=== PATIENT | female | born 1940 | race Hispanic/Latino ===

== ENCOUNTER 2018-02-21 10:07 | Emergency (ER) | payer MEDICARE ==
[2018-02-21 10:25] VITALS: TEMP 98.9
[2018-02-21] MEDS ORDERED: TDAP Vaccine 0.5 mL Syr IM ONE (10:36)
[2018-02-21] MEDS ORDERED: Absorbable Gelatin Sponge Size 100 MM ONE (10:41)
--- NOTE | 2018-02-21 10:41 | ED PDOC ---
Arrival/HPI - General Historian: Patient <Ag Vela - Last Filed: 02/21/18 10:55> <Marcos Flores - Last Filed: 02/21/18 11:02> - General Chief Complaint: Upper Extremity Problem/Injury Time Seen by Provider: 02/21/18 10:24 - History of Present Illness Narrative History of Present Illness (Text): 02/21/18 10:37 77 y/o female, pmh including hypothyroidism, last tetanus over 10 years ago, c/ o Lt. hand 5th digit skin laceration x 1 hour. Pt. stated that she sliced her hand accidentally, no numbness or tingling, able to flex and extend, no night sweat, no rash, no dizziness, no change in vision, no other medical or psychological complaints. (Ag Vela) Past Medical History - Provider Review Nursing Documentation Reviewed: Yes - Infectious Disease Hx of Infectious Diseases: None - Endocrine/Metabolic Hx Hypothyroidism: Yes - Psychiatric Hx Substance Use: No - Surgical History Hx Appendectomy: Yes - Anesthesia Hx Anesthesia: Yes Hx Anesthesia Reactions: No Hx Malignant Hyperthermia: No <Ag Vela - Last Filed: 02/21/18 10:55> Family/Social History - Physician Review Nursing Documentation Reviewed: Yes Family/Social History: Unknown Family HX Smoking Status: Never Smoked Hx Alcohol Use: No Hx Substance Use: No <Ag Vela - Last Filed: 02/21/18 10:55> Allergies/Home Meds <Ag Vela - Last Filed: 02/21/18 10:55> <Marcos Flores - Last Filed: 02/21/18 11:02> Allergies/Adverse Reactions: Allergies No Known Allergies Allergy (Verified 02/21/18 10:25) Home Medications: Home Meds Medication Instructions Recorded Confirmed Levothyroxine [Synthroid] 1 tab PO DAILY 02/21/18 02/21/18 Review of Systems - Review of Systems Constitutional: absent: Fatigue, Fevers Eyes: absent: Vision Changes ENT: absent: Hearing Changes Respiratory: absent: SOB, Cough Cardiovascular: absent: Chest Pain Gastrointestinal: absent: Abdominal Pain, Nausea, Vomiting Skin: Other (laceration). absent: Rash, Pruritis, Abscess, Ulcer, Cellulitis Neurological: absent: Headache, Dizziness Psychiatric: absent: Anxiety, Depression <Ag Vela - Last Filed: 02/21/18 10:55> Physical Exam Vital Signs Reviewed: Yes Temperature: Afebrile Blood Pressure: Normal Pulse: Regular Respiratory Rate: Normal Appearance: Positive for: Well-Appearing, Non-Toxic, Comfortable Pain Distress: Mild Mental Status: Positive for: Alert and Oriented X 3 - Systems Exam Head: Present: Atraumatic, Normocephalic Pupils: Present: PERRL Extroacular Muscles: Present: EOMI Conjunctiva: Present: Normal Mouth: Present: Moist Mucous Membranes Respiratory/Chest: Present: Clear to Auscultation, Good Air Exchange. No: Respiratory Distress, Accessory Muscle Use Cardiovascular: Present: Regular Rate and Rhythm, Normal S1, S2. No: Murmurs Abdomen: No: Tenderness, Distention, Peritoneal Signs Upper Extremity: Present: Normal Inspection, Other (Lt. hand 5th digit visible approx. 0.75cm diameter, no cellulitis or streaking. ). No: Cyanosis, Edema Lower Extremity: Present: Normal Inspection. No: Edema Neurological: Present: GCS=15, Speech Normal Skin: Present: Warm, Dry, Normal Color. No: Rashes Psychiatric: Present: Alert, Oriented x 3, Normal Insight, Normal Concentration <Ag Vela - Last Filed: 02/21/18 10:55> Vital Signs Temp Pulse Resp BP Pulse Ox 02/21/18 10:20 98.9 F 93 H 19 138/83 95 Medical Decision Making <Ag Vela - Last Filed: 02/21/18 10:55> <Marcos Flores - Last Filed: 02/21/18 11:02> ED Course and Treatment: 02/21/18 10:51 -tdap/keflex -refused pain med -wound irrigated with normal saline, clean with betadine, gelfoam dressing, bleeding controlled, will discharge home. -Discharge home with keflex, tylenol, keep the dressing dry and clean until the dressing falls off, clean it twice daily, follow up with your own pmd within 2 days, return to the ER for any new or worsening signs or symptoms. (Ag Vela) - Medication Orders Current Medication Orders: Discontinued Medications Cephalexin Monohydrate (Keflex) 500 mg PO STAT STA PRN Reason: Protocol Stop: 02/21/18 10:37 Last Admin: 02/21/18 10:59 Dose: 500 mg Gelatin (Gelfoam Size 100) 1 spg MM ONCE ONE Stop: 02/21/18 10:42 Last Admin: 02/21/18 10:59 Dose: 1 spg Tetanus/Reduced Diphtheria/Acell Pertussis (Boostrix Vaccine Inj) 0.5 ml IM .ONCE ONE Stop: 02/21/18 10:37 Last Admin: 02/21/18 10:59 Dose: 0.5 ml Immunization Registry Document 02/21/18 10:59 SF (Rec: 02/21/18 10:59 SF [facility] [id number] Immunization Registry Consent Date 09/20/17 - PA / MEDIA INTERN / Resident Statement DANYA has reviewed & agrees with the documentation as recorded. <Ag Vela - Last Filed: 02/21/18 10:55> - PA / MEDIA INTERN / Resident Statement DANYA has reviewed & agrees with the documentation as recorded. <Marcos Flores - Last Filed: 02/21/18 11:02> Disposition/Present on Arrival - Present on Arrival Any Indicators Present on Arrival: No History of DVT/PE: No History of Uncontrolled Diabetes: No Urinary Catheter: No History of Decub. Ulcer: No History Surgical Site Infection Following: None - Disposition Have Diagnosis and Disposition been Completed?: Yes Disposition Time: 10:53 Patient Plan: Discharge <Ag Vela - Last Filed: 02/21/18 10:55> <Marcos Flores - Last Filed: 02/21/18 11:02> - Disposition Diagnosis: Skin avulsion Disposition: HOME/ ROUTINE Condition: GOOD Additional Instructions: -Discharge home with keflex, tylenol, keep the dressing dry and clean until the dressing falls off, clean it twice daily, follow up with your own pmd within 2 days, return to the ER for any new or worsening signs or symptoms. Prescriptions: Acetaminophen [Tylenol 325mg tab] 2 tab PO QID PRN #30 tab PRN Reason: Other Cephalexin [cephalexin] 500 mg PO TID #21 cap Referrals: Hansel Lee MD [Primary Care Provider] - Follow up with primary Forms: WORK NOTE
[2018-02-21 11:27] VITALS: BP 135/81; PULSE 89; RESP 18; O2SAT 96
== END 2018-02-21 11:02 | disposition home or self-care (01) ==
LOC: ED 10:07
DX: S61.207A Unspecified open wound of left little finger without damage to nail, initial encounter (principal); Z23 Encounter for immunization; E03.9 Hypothyroidism, unspecified